=== PATIENT | male | born 1950 | race Caucasian/White ===

== ENCOUNTER 2018-04-28 10:12 | Day surgery (SDC) | payer MEDICARE ==
[~2018-04-28] VITALS: Ht 190.5 cm; Wt 106.8 kg
[~2018-04-28 10:12] MED LIST: AMIO200T42 PO; CARV12.52 PO; CELE200C PO; DABI150C PO; DILT120C2 PO; DRON400T PO; ENOX100S5 SQ; EZET1TAB30 PO; FLUT1DIS3 INH; GABA300C10 PO; HYDR2TAB29 PO; IPRA4AER INH; METO25TA91 PO; MINO50CA21 PO; MINO50TA2 PO; OXYC10TA6 PO; RAMI10CA59 PO; albuterol nebulizer INH
[2018-04-28 12:21] VITALS: BP 148/97
[2018-04-28] MEDS ORDERED: AMIO200T42 PO (12:37)
[2018-04-28] MEDS ORDERED: ATOR10TA9 PO (12:37)
[2018-04-28] MEDS ORDERED: LOSA25TA6 PO (12:37)
[2018-04-28] MEDS ORDERED: FLUT9.9S INH (12:37)
[2018-04-28 12:48] LABS: ANION GAP 6 mmol/L (5-15); CALCIUM 8.5 mg/dL (8.5-10.1); CHLORIDE 110 mmol/L (98-107); CREATININE 0.74 mg/dL (0.7-1.3)
[2018-04-28] MEDS ORDERED: PROPOFOL 10 MG/ML, 20ML ONE (13:22)
== END 2018-04-28 14:59 | disposition home or self-care (01) ==
LOC: CACL 10:12
PROVIDERS: ATTEND Internal Medicine Cardiovascular Disease
DX: I48.91 Unspecified atrial fibrillation (principal); I48.92 Unspecified atrial flutter; I10 Essential (primary) hypertension; E78.5 Hyperlipidemia, unspecified; J45.909 Unspecified asthma, uncomplicated; Z88.6 Allergy status to analgesic agent
CPT/HCPCS: 36415; 80048; 92960; J2704

== ENCOUNTER → 2018-07-25 | Outpatient (CLI) | payer MEDICARE ==
[~2018-07-25] MED LIST changes: +ATOR10TA9 PO; +FLUT9.9S INH; +LOSA25TA25 PO
== END | disposition home or self-care (01) ==
LOC: CFH 14:31
PROVIDERS: ATTEND Family Medicine
DX: I34.0 Nonrheumatic mitral (valve) insufficiency (principal); I10 Essential (primary) hypertension
CPT/HCPCS: 93306

== ENCOUNTER → 2018-09-12 | Outpatient (CLI) | payer MEDICARE ==
[~2018-09-12] MED LIST changes: +REGADENOSON 0.4 MG/5 ML SYRINGE ONE
== END | disposition home or self-care (01) ==
LOC: RAD 10:49
PROVIDERS: ATTEND Nurse Practitioner Family
DX: I48.91 Unspecified atrial fibrillation (principal)
CPT/HCPCS: 78452; 93017; A9502; C9898; J2785

== ENCOUNTER 2019-02-09 06:27 | Observation (INO) | payer MEDICARE ==
[~2019-02-09] VITALS: Ht 190.5 cm; Wt 108.1 kg
[2019-02-10 08:30] VITALS: BP 139/73
== END 2019-02-10 11:05 | disposition home or self-care (01) ==
LOC: CACL 06:27 → EDIP 10:08 → 5SO 12:50 → DCLOUNGE 02-10 10:50
PROVIDERS: ADMIT Internal Medicine Cardiovascular Disease; ATTEND Internal Medicine Cardiovascular Disease
DX: I48.91 Unspecified atrial fibrillation (principal); I48.92 Unspecified atrial flutter; J45.909 Unspecified asthma, uncomplicated; M19.90 Unspecified osteoarthritis, unspecified site; Z79.01 Long term (current) use of anticoagulants; Z79.899 Other long term (current) drug therapy
CPT/HCPCS: 36415; 71046; 80053; 85025; 85347; 93308; 93321; 93325; 93613; 93656; 93657; 93662; C1730; C1732; C1759; C1766; C1893; C1894; G0378; J0330; J0690; J1100; J2250; J2370; J2405; J2704; J2710; J3010; J3490